=== PATIENT | female | born 1965 | race Caucasian/White ===

== ENCOUNTER 2023-05-29 19:09 | Emergency (ER) | payer OTHER, SELFPAY ==
[2023-05-29 19:13] VITALS: BP 117/84
[2023-05-29 19:41] LABS: % Basophils 0.5 % (0-2); % Immature Granulocytes 0.2 % (0-0.5); % Lymphocytes 22.2 % (20.5-51.1); % Neutrophils 69.1 % (42.2-75.2); Absolute Eosinophils 0.1 10^3/uL (0-0.7); Absolute Lymphocytes 1.4 10^3/uL (1.2-3.4); Absolute Monocytes 0.4 10^3/uL (0.1-0.6); Absolute Neutrophils 4.3 10^3/uL (1.4-6.5); Hematocrit 42.8 % (37.0-47.0); Hemoglobin 14.7 g/dL (12.0-16.0); Mean Corp Hgb Conc. 34.3 g/dL (33.0-37.0); Mean Corpuscular Hgb 31.1 pg (27.0-31.0); Mean Corpuscular Volume 90.5 fL (81.0-99.0); Mean Platelet Volume 10.5 fL (7.4-10.4); Nucleated Red Blood Cells % 0 %; Platelet Count 203 10^3/uL (130-400); Red Blood Cell Count 4.73 10^6/uL (4.20-5.40); Red Cell Dist. Width 12.1 % (11.5-14.5); White Blood Cell Count 6.2 10^3/uL (4.8-10.8)
[2023-05-29 19:52] LABS: ALT (SGPT) 28 U/L (0-35); AST (SGOT) 39 U/L (14-36); Albumin 5.1 g/dl (3.5-5.0); Alkaline Phosphatase 91 U/L (38-126); Blood Urea Nitrogen 17 mg/dl (7-17); Calcium 10.1 mg/dl (8.4-10.2); Carbon Dioxide 28 mmol/L (22-30); Chloride 104 mmol/L (98-107); Glucose 115 mg/dl (70-99); Magnesium 2.2 mg/dl (1.6-2.3); Potassium 4.1 mmol/L (3.5-5.1); Sodium 140 mmol/L (135-145); Total Bilirubin 0.9 mg/dl (0.2-1.3); eGFR > 60.00
[2023-05-29 20:05] LABS: Troponin I < 0.012 ng/ml
[2023-05-29 20:23] LABS: TSH Reflex To Free T4 2.56 uIU/ml (0.47-4.68)
--- NOTE | 2023-05-29 21:05 | ED.GENMED ---
History of Present Illness
General
Chief Complaint: Heart Rate Problem
Time Seen by Provider: 05/29/23 20:03
Travel History
Have you had any contact with someone who has COVID-19?: No
Do you have any symptoms of coronavirus? Fever > 100 degrees, chills, cough, shortness of breath, sore throat, loss of taste or smell, muscle aches, or headache?: No
History of Present Illness
History of Present Illness:
58-year-old female presents to the emergency department for evaluation of elevated heart rate occurring earlier today. She was at work when the symptoms began but was not exerting herself at the time. She states she had a 10 to 20-minute period of
heart palpitations, denies any chest pain or shortness of breath during this time. Denies any fevers or dizziness. No history of heart arrhythmias or heart palpitations. Denies any illicit substance use. She has not had any recurrence of
symptoms since this event. She is wearing an Apple Watch but did not take an EKG her heart rate monitor during this time
Past History
Past History
ED Past Medical History: None
ED Past Surgical History: Appendectomy and Other (Breast implants)
Social History
Tobacco: Non-smoker
Alcohol: None
Personal:
Living: with family
Family History
Family History: Negative Hypertension, Early CAD or CAD
Review of Systems
Review of Systems
Allergies reviewed?: Yes
All Other Systems: ROS reviewed and negative except as documented in HPI and ROS
Phy Exam
Physical Exam
Physical Exam:
GEN: Well appearing, NAD, WDWN
HEENT: Oral mucosa moist, no scleral icterus
Cardiac: Regular rate and rhythm, no murmurs
Lung: No respiratory distress, no tachypnea
MSK: No gross deformity or injuries
Skin: Good color, no pallor or jaundice, no rashes
Neuro: AO x3, moves all extremities freely
Psych: Calm, cooperative
Course
Orders/Labs/Results
Orders:
Orders
05/29/23 19:17
Electrocardiogram (*1) Urgent
Reason for Study: Chest Pain
CR Chest - 2 Views Urgent
Comment:
Reason For Exam: chest pain
05/29/23 19:18
EKG- Treatment ONCE
05/29/23 19:24
Complete Blood Count/With Diff Urgent
Comprehensive Metabolic Panel Urgent
Magnesium Urgent
TSH Reflex To Free T4 Urgent
Troponin I Urgent
Abnormal Lab Results
05/29/23
19:24
MCH 31.1 H pg
(27.0-31.0)
MPV 10.5 H fL
(7.4-10.4)
Glucose 115 H mg/dl
(70-99)
AST 39 H U/L
(14-36)
Total Protein 9.0 H g/dl
(6.3-8.2)
Albumin 5.1 H g/dl
(3.5-5.0)
05/29/23 19:24
05/29/23 19:24
Vital Signs
Initial and Last Documented VS:
Initial Vital Signs
Temp Pulse Resp BP Pulse Ox
98.2 F 111 20 117/84 98
05/29/23 19:13 05/29/23 19:13 05/29/23 19:13 05/29/23 19:13 05/29/23 19:13
Last Documented Vital Signs
Temp Pulse Resp BP Pulse Ox
98.2 F 98 18 117/84 100
05/29/23 19:13 05/29/23 21:08 05/29/23 21:08 05/29/23 19:13 05/29/23 21:08
MDM/Problems Addressed
MDM/Problems Addressed:
58-year-old female presents with heart palpitations. She had no recurrent arrhythmias in the emergency department and unfortunately did not assess her EKG on her fitness monitor. Her troponin is negative and she has no chest pain thus I do not
have any concern for ischemia in the setting of her slightly depressed ST segments on her EKG. Would suspect SVT, less likely paroxysmal A-fib. Recommend she monitor her heart rates with her fitness monitor going forward
Comment
Comment:
EKG independently interpreted by me shows normal sinus rhythm at a rate of 89, there are subtle ST depressions inferiorly and laterally
*Critical Care Note
Total Time (30-74mins, 75-104mins- exclusive of procedures): Not Applicable
ED Attending Note
-
Portions of this chart may have been created with voice recognition software.� Occasional wrong word or��sound alike� substitutions may have occurred due to the inherent limitations of voice recognition software.
Discharge Plan
Departure
Patient Disposition: Home (Routine Discharge)
Date of Disposition: 05/29/23
Time of Disposition: 21:05
Patient with high blood pressure during this ER visit?: No
Discharge Problem:
Heart palpitations
Instructions: Palpitations (DC)
Prescriptions:
No Action
azithromycin [Zithromax] 250 MG tablet
250 mg PO UD
codeine-guaifenesin [Guaiatussin AC] 10 ML liquid
10 ml PO Q4HPRN PRN (Reason: cough)
Interventions
Interventions:
*Risk Screen - Suicide Last Done: 05/29/23 19:13
*General Assessment Last Done: 05/29/23 19:13
*Neglect/Abuse Screening Last Done: 05/29/23 19:13
ED- Fall Risk Assessment Last Done: 05/29/23 21:08
*Nursing Disposition Last Done: 05/29/23 21:25
ED- Cardiac Assessment Last Done: 05/29/23 21:08
ED- Pulmonary Assessment Last Done: 05/29/23 21:08
Discharge Date and Time
Discharge Date/Time: 05/29/23 21:26
== END 2023-05-29 21:26 | disposition home or self-care (01) ==
LOC: EMR 19:09
PROVIDERS: Emergency Medicine; EMERGENCY PHYSICIAN Emergency Medicine
DX: R00.2 Palpitations (principal); R07.9 Chest pain, unspecified
CPT/HCPCS: 99285; 71046; 80053; 83735; 84443; 84484; 85025; 93005

== ENCOUNTER 2023-09-09 17:15 | Emergency (ER) | payer OTHER, SELFPAY ==
[2023-09-09 17:22] VITALS: BP 154/99
[2023-09-09 18:22] LABS: % Basophils 0.6 % (0-2); % Eosinophils 1.6 % (0-6); % Immature Granulocytes 0.2 % (0-0.5); % Lymphocytes 30.7 % (20.5-51.1); % Monocytes 7.7 % (1.7-9.3); % Neutrophils 59.2 % (42.2-75.2); Absolute Eosinophils 0.1 10^3/uL (0-0.7); Absolute Lymphocytes 1.6 10^3/uL (1.2-3.4); Absolute Monocytes 0.4 10^3/uL (0.1-0.6); Hematocrit 38.3 % (37.0-47.0); Hemoglobin 13.5 g/dL (12.0-16.0); Mean Corp Hgb Conc. 35.2 g/dL (33.0-37.0); Mean Corpuscular Hgb 30.4 pg (27.0-31.0); Mean Corpuscular Volume 86.3 fL (81.0-99.0); Mean Platelet Volume 9.7 fL (7.4-10.4); Nucleated Red Blood Cells % 0 %; Platelet Count 182 10^3/uL (130-400); Red Blood Cell Count 4.44 10^6/uL (4.20-5.40); Red Cell Dist. Width 12.2 % (11.5-14.5); White Blood Cell Count 5.1 10^3/uL (4.8-10.8)
[2023-09-09 18:35] LABS: ALT (SGPT) 34 U/L (0-35); AST (SGOT) 41 U/L (14-36); Albumin 4.7 g/dl (3.5-5.0); Alkaline Phosphatase 63 U/L (38-126); Blood Urea Nitrogen 17 mg/dl (7-17); Carbon Dioxide 26 mmol/L (22-30); Chloride 105 mmol/L (98-107); Glucose 128 mg/dl (70-99); Potassium 3.6 mmol/L (3.5-5.1); Sodium 141 mmol/L (135-145); Total Bilirubin 0.6 mg/dl (0.2-1.3); eGFR > 60.00
[2023-09-09 18:53] LABS: Troponin I < 0.012 ng/ml
[2023-09-09 19:06] LABS: TSH Reflex To Free T4 3.51 uIU/ml (0.47-4.68)
--- NOTE | 2023-09-09 19:08 | ED.GENMED ---
History of Present Illness
General
Chief Complaint: Heart Rate Problem
Source: patient
Exam Limitations: none
Time Seen by Provider: 09/09/23 18:56
Travel History
Have you had any contact with someone who has COVID-19?: No
Do you have any symptoms of coronavirus? Fever > 100 degrees, chills, cough, shortness of breath, sore throat, loss of taste or smell, muscle aches, or headache?: No
History of Present Illness
History of Present Illness:
This is a 58 year old female that comes in with c/o tachycardia. 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 States that she started to feel dizzy and thing
were going black but she held it together and went and sat down in the bathroom. States that this lasted for about 5 min. States that she has had this before about 2 months ago. States that she called Dr. Soto's office and she has an
appointment tomorrow at 1:30pm. States that she is a good water drinker. State that she has had a headache all day. States that she really could feel her heart beating. States that just walking back from Triage her heart rate was 104. Denies any
fever, chills, chest pain, SOB, abd pain, nausea, vomiting, diarrhea, urinary burning.
Past History
Past History
ED Past Medical History: None; Negative Asthma, HTN, Hypercholesterolemia or NIDDM
ED Past Surgical History: Appendectomy and Other (Breast implants)
Social History
Tobacco: Non-smoker
Alcohol: Occasional
Personal:
Living: with family
Employment: Employed
Family History
Family History: Negative Hypertension, Early CAD or CAD
Review of Systems
Review of Systems
All Other Systems: ROS reviewed and negative except as documented in HPI and ROS
Constitutional: Reports no symptoms; Denies fever or chills
EENT: Reports no symptoms
Respiratory: Reports no symptoms; Denies cough or trouble breathing
Cardiac: Reports other (Just felt her heart really beating hard); Denies chest pain
ABD/GI: Reports no symptoms; Denies abdominal pain, nausea, vomiting or diarrhea
: Reports no symptoms; Denies dysuria, frequency or urgency
Musculoskeletal: Reports no symptoms
Skin: Reports no symptoms
Neurological: Reports dizzy and headache (all day)
Psychiatric: Reports no symptoms
Phy Exam
General Physical Exam
General Presentation: well appearing and no apparent distress
General age: appears stated age
General Skin: warm and dry
General Habitus: normal
General Mental: alert
General Hydration: appears well hydrated
ENT Exam
ENT Exam: TM's normal, pharynx normal and neck supple
Eye Exam
Eye Exam: EOMI
Cardiovascular Exam
Cardiovascular Exam: regular rate/rhythm, no edema, no murmur and normal peripheral pulses
Pulmonary Exam
Pulmonary Exam: lungs clear, no respiratory distress, no rales, chest non tender, no crackles, no rhonchi, no wheezing and no cough
Gastrointestinal Exam
Gastrointestinal Exam: normal bowel sounds, non tender, soft, no organomegaly, no pulsatile mass and non distended
Musculoskeletal Exam
Musculoskeletal Exam: full ROM and no edema
Skin Exam
Skin Exam: normal color, warm/dry, no rash and no petechia
Psychiatric Exam
Psychiatric Exam: normal mood/affect
Course
Orders/Labs/Results
Orders:
Orders
09/09/23 17:25
Electrocardiogram (*1) Urgent
Reason for Study: Tachycardia
09/09/23 17:26
EKG- Treatment ONCE
09/09/23 18:14
Complete Blood Count/With Diff Urgent
Comprehensive Metabolic Panel Urgent
TSH Reflex To Free T4 Urgent
Troponin I Urgent
09/09/23 19:53
D-Dimer Urgent
Abnormal Lab Results
09/09/23
18:14
Glucose 128 H mg/dl
(70-99)
AST 41 H U/L
(14-36)
09/09/23 18:14
09/09/23 18:14
Glucose nonfasting. AST elevation. Troponin <0.012, TSH 3.51, D-dimer 0.47,
Vital Signs
Initial and Last Documented VS:
Initial Vital Signs
Temp Pulse Resp BP Pulse Ox
98.4 F 104 18 154/99 100
09/09/23 17:22 09/09/23 17:22 09/09/23 17:22 09/09/23 17:22 09/09/23 17:22
Last Documented Vital Signs
Temp Pulse Resp BP Pulse Ox
98.4 F 77 13 124/89 99
09/09/23 17:22 09/09/23 19:49 09/09/23 19:49 09/09/23 19:49 09/09/23 19:49
MDM/Problems Addressed
Differential Diagnosis Includes:
Tachycardia, PE,
MDM/Problems Addressed:
This is a 58 year old female that comes in with c/o tachycardia. States that she was just standing talking with other [employer] at [employer] and her heart rate went up to 133. State that she could feel her heart beating hard. States that she has had this
in the past. Today this lasted about 5 min and she was dizzy.
Will get labs.
Back into see patient. Explained that the D-dimer is negative and that her TSH is normal. Patient to see the Warper Tender tomorrow as scheduled. Return with any concerns.
Chronic conditions affecting care:
NA
Acute Exacerbation and/or Progression of Chronic Illness:
NA
*Pulse Oximetry
Patient hypoxic: no
*EKG
Interpreted by ED Provider?: Yes
Heart Rate: 86
Rate: normal
Rhythm: sinus
[place]: normal axis
Interval: normal interval
QRS Pattern: normal QRS
Ischemia: non-specific ST changes (II, III, aVF, V4, V5, )
*Critical Care Note
Total Time (30-74mins, 75-104mins- exclusive of procedures): Not Applicable
ED Attending Note
-
Portions of this chart may have been created with voice recognition software.� Occasional wrong word or��sound alike� substitutions may have occurred due to the inherent limitations of voice recognition software.
Discharge Plan
Departure
Patient Disposition: Home (Routine Discharge)
Date of Disposition: 09/09/23
Time of Disposition: 20:28
Patient with high blood pressure during this ER visit?: No
Condition: Good
Covid-19: Not Applicable
Discharge Problem:
Tachycardia
Instructions: Tachycardia
Prescriptions:
No Action
ascorbic acid (vitamin C) [Vitamin C] 500 mg Tablet
1,000 mg PO DAILY
cholecalciferol (vitamin D3) 125 mcg (5,000 unit) Tablet
125 mcg PO DAILY
Patient Comments:
09/09/2023, gummy.
ibuprofen [Children's Ibuprofen] 100 mg/5 mL Suspension
300 mg PO DAILYPRN PRN (Reason: mild pain)
Referrals:
Rachele Lund MD [Family Provider] -
Kai Soto MD [Active] - 09/10/23
Activity Restrictions/Additional Instructions:
As discussed, your blood work is normal. Your TSH is normal along with the D-dimer. Please follow up with the Warper Tender tomorrow as scheduled. He may place you on medication to help your heart beat more effectively and have you wear a Holter
Monitor. IF YOU HAVE INCREASED HEART RATE THAT IS NOT COMING DOWN, CHEST PAIN, OR YOU HAVE ANY OTHER CONCERNS PLEASE RETURN TO THE EMERGENCY ROOM.
Interventions
Interventions:
*Risk Screen - Suicide Last Done: 09/09/23 17:22
*General Assessment Last Done: 09/09/23 17:22
*Neglect/Abuse Screening Last Done: 09/09/23 17:22
Discharge Date and Time
Print Language: SLOVAK
[2023-09-09 19:48] VITALS: BP 124/89
[2023-09-09 19:49] VITALS: BP 124/89
[2023-09-09 20:00] VITALS: BP 133/79
[2023-09-09 20:18] LABS: D-Dimer 0.47 ug/mlFEU (0.00-0.50)
== END 2023-09-09 21:32 | disposition home or self-care (01) ==
LOC: EMR 17:15
PROVIDERS: Clinical Nurse Specialist Family Health; Emergency Medicine; EMERGENCY PHYSICIAN Emergency Medicine; FAMILY PHYSICIAN Internal Medicine
DX: R00.0 Tachycardia, unspecified (principal); R42 Dizziness and giddiness; R51.9 Headache, unspecified
CPT/HCPCS: 99284; 80053; 84443; 84484; 85025; 85379; 93005

== ENCOUNTER → 2023-10-11 09:13 | Outpatient (REF) | payer OTHER, SELFPAY | LOC: RCS 09:13 | PROVIDERS: ATTENDING PHYSICIAN Internal Medicine Cardiovascular Disease; FAMILY PHYSICIAN Internal Medicine | DX: R00.2 Palpitations (principal) | CPT/HCPCS: 93306 ==

== ENCOUNTER 2023-12-29 10:25 | Emergency (ER) | payer OTHER, SELFPAY ==
[2023-12-29 10:40] VITALS: BP 146/84
[2023-12-29 10:49] VITALS: BMI 20.7
--- NOTE | 2023-12-29 11:05 | ED.GENMED ---
History of Present Illness
General
Chief Complaint: Chest Pain
Source: patient and spouse
Exam Limitations: none
Time Seen by Provider: 12/29/23 10:46
Nursing documentation reviewed up to this point in time: agreed with
History of Present Illness
History of Present Illness:
58-year-old female presenting to the emergency department today with concerns of left-sided chest pain with radiation to her left jaw area that was present for an hour or 2 prior to arrival associated mild shortness of breath. Some nausea no
vomiting also some diarrhea this morning. Denies any specific fevers. Symptoms have been improving. Denies any recent trauma surgery immobilization, leg swelling, estrogen product usage, history of blood clots.
Past History
Past History
ED Past Medical History: None; Negative Asthma, HTN, Hypercholesterolemia or NIDDM
ED Past Surgical History: Appendectomy and Other (Breast implants)
Social History
Tobacco: Non-smoker
Alcohol: Occasional
Personal:
Living: with family
Employment: Employed
Family History
Family History: Negative Hypertension, Early CAD or CAD
Review of Systems
Review of Systems
Allergies reviewed?: Yes
All Other Systems: ROS reviewed and negative except as documented in HPI and ROS
Phy Exam
Physical Exam
Physical Exam:
GENERAL: Alert , in no apparent distress
EYE: pupils equal and reactive
NECK: Supple, no significant adenopathy.
ENT: o/p clr, mmm.
CARDIAC: Regular rate and rhythm .
LUNGS: Clear breath sounds bilaterally, no acute respiratory distress, no wheezes/rales/rhonchi
ABDOMEN: Soft, without focal tenderness, no r/g, no cvat
NEUROLOGICAL: Alert and oriented, no focal neuro deficits
SKIN: Warm and dry, skin intact.
MUSCULOSKELETAL: No edema, well perfused.
PSYCH: Normal and appropriate interaction.
Scores
Heart Score for Chest Pain Patients
STEMI patient?: No
History: Slightly or Non-Suspicious
ECG: Normal
Age: >45 - <65 years
Risk Factors: No Risk Factors
Troponin: </= Normal Limit
Heart Score for Chest Pain Patients: 1
Heart Score Risk: 2.5% MACE over next 6 weeks
Course
Orders/Labs/Results
Orders:
Orders
12/29/23 10:27
EKG [Electrocardiogram (*1)] Urgent
Reason for Study: Chest Pain
EKG- Treatment ONCE
12/29/23 11:04
Complete Blood Count/With Diff Urgent
Comprehensive Metabolic Panel Urgent
Troponin I Urgent
12/29/23 11:05
Chest [CR Chest - 2 Views ] Urgent
Comment:
Reason For Exam: cp
12/29/23 11:28
Aspirin 325 mg PO NOW STA
Mag Hydrox/Al Hydrox/Simeth [Maalox] 30 ml Phenobarb/Hyoscy/Atropine/Scop [] 10 ml PO NOW
12/29/23 11:40
Mag Hydrox/Al Hydrox/Simeth [Maalox] 30 ml .ROUTE .STK-MED ONE
Phenobarb/Hyoscy/Atropine/Scop [] 10 ml .ROUTE .STK-MED ONE
12/29/23 13:11
EKG [Electrocardiogram (*1)] Urgent
Reason for Study: Chest Pain
EKG- Treatment ONCE
12/29/23 13:45
Troponin I Urgent
Abnormal Lab Results
12/29/23
11:04
WBC 3.7 L 10^3/uL
(4.8-10.8)
Glucose 111 H mg/dl
(70-99)
AST 38 H U/L
(14-36)
ALT 37 H U/L
(0-35)
12/29/23 11:04
12/29/23 11:04
Vital Signs
Initial and Last Documented VS:
Initial Vital Signs
Temp Pulse Resp BP Pulse Ox
99.0 F 88 16 146/84 98
12/29/23 10:40 12/29/23 10:40 12/29/23 10:40 12/29/23 10:40 12/29/23 10:40
Last Documented Vital Signs
Temp Pulse Resp BP Pulse Ox
99.0 F 79 14 119/77 100
12/29/23 10:40 12/29/23 11:22 12/29/23 11:22 12/29/23 14:00 12/29/23 14:30
MDM/Problems Addressed
MDM/Problems Addressed:
58-year-old female presenting to the emergency department today with concerns of chest discomfort described as achy pressure to the left chest rating to the left jaw with associated shortness of breath. She did have some nausea yesterday no
vomiting, diarrhea today. Here upon arrival blood pressure slightly elevated upon arrival however improving without specific treatment. She was given a GI cocktail as she has had some GI symptoms with some improvement in symptoms she was also
given aspirin. Labs obtained without acute abnormalities initial troponin negative as well as EKG nonischemic. Chest x-ray without acute abnormalities. Symptoms gradually improving throughout the ER stay no symptoms at times of reassessment. 3
hours and to stay repeated troponin and EKG without changes negative troponin. Patient appear stable for outpatient follow-up with cardiology no signs of emergent life-threatening pathology at this time return precautions given.
*Critical Care Note
Total Time (30-74mins, 75-104mins- exclusive of procedures): Not Applicable
ED Attending Note
-
Portions of this chart may have been created with voice recognition software.� Occasional wrong word or��sound alike� substitutions may have occurred due to the inherent limitations of voice recognition software.
Discharge Plan
Departure
Patient Disposition: Home (Routine Discharge)
Date of Disposition: 12/29/23
Time of Disposition: 14:45
Patient with high blood pressure during this ER visit?: No
Condition: Good
Covid-19: Not Applicable
Discharge Problem:
Chest pain
Instructions: Chest Pain CBC Follow Up
Prescriptions:
No Action
ascorbic acid (vitamin C) [Vitamin C] 500 mg Tablet
1,000 mg PO DAILY
cholecalciferol (vitamin D3) 125 mcg (5,000 unit) Tablet
125 mcg PO DAILY
Patient Comments:
09/09/2023, tova.
ibuprofen [Children's Ibuprofen] 100 mg/5 mL Suspension
300 mg PO DAILYPRN PRN (Reason: mild pain)
Referrals:
Rachele Lund MD [Family Provider] -
Activity Restrictions/Additional Instructions:
You came to the emergency department today with concerns of chest discomfort. Here you had a reassuring assessment and no evidence of acute coronary syndromes. You had a normal chest x-ray and no significant events on the monitor throughout ER
stay. This is reassuring. Please follow closely with cardiology. Return to the emergency department for worsening, new or concerning symptoms.
Interventions
Interventions:
*Risk Screen - Suicide Last Done: 12/29/23 10:50
*General Assessment Last Done: 12/29/23 10:50
*Neglect/Abuse Screening Last Done: 12/29/23 10:50
ED- Fall Risk Assessment Last Done: 12/29/23 12:00
*ED COVID-19 Vaccine History Last Done: 12/29/23 10:50
ED- Cardiac Assessment Last Done: 12/29/23 12:00
Discharge Date and Time
Print Language: [place]EN[place]
[2023-12-29 11:13] LABS: % Basophils 0.8 % (0-2); % Eosinophils 2.4 % (0-6); % Lymphocytes 35.1 % (20.5-51.1); % Monocytes 8.4 % (1.7-9.3); % Neutrophils 53.3 % (42.2-75.2); Absolute Eosinophils 0.1 10^3/uL (0-0.7); Absolute Lymphocytes 1.3 10^3/uL (1.2-3.4); Absolute Monocytes 0.3 10^3/uL (0.1-0.6); Hemoglobin 13.7 g/dL (12.0-16.0); Mean Corp Hgb Conc. 35.1 g/dL (33.0-37.0); Mean Corpuscular Hgb 30.4 pg (27.0-31.0); Mean Corpuscular Volume 86.5 fL (81.0-99.0); Nucleated Red Blood Cells % 0 %; Platelet Count 209 10^3/uL (130-400); Red Blood Cell Count 4.51 10^6/uL (4.20-5.40); Red Cell Dist. Width 11.9 % (11.5-14.5); White Blood Cell Count 3.7 10^3/uL (4.8-10.8)
[2023-12-29 11:22] VITALS: BP 115/77
[2023-12-29 11:23] LABS: ALT (SGPT) 37 U/L (0-35); AST (SGOT) 38 U/L (14-36); Albumin 4.7 g/dl (3.5-5.0); Alkaline Phosphatase 91 U/L (38-126); Blood Urea Nitrogen 12 mg/dl (7-17); Calcium 9.7 mg/dl (8.4-10.2); Carbon Dioxide 28 mmol/L (22-30); Chloride 105 mmol/L (98-107); Estimated Creatinine Clearance 61 ml/min; Glucose 111 mg/dl (70-99); Potassium 4.2 mmol/L (3.5-5.1); Sodium 145 mmol/L (135-145); Total Bilirubin 0.9 mg/dl (0.2-1.3); Total Protein 7.9 g/dl (6.3-8.2); eGFR > 60.00
[2023-12-29 11:34] LABS: Troponin I < 0.012 ng/ml
[2023-12-29] MEDS: MAALOX 30 PO (11:45)
[2023-12-29] MEDS: ASPIRIN 325 MG PO (11:46)
[2023-12-29 13:05] VITALS: BP 97/72
[2023-12-29 14:00] VITALS: BP 119/77
[2023-12-29 14:15] LABS: Troponin I < 0.012 ng/ml
== END 2023-12-29 15:08 | disposition home or self-care (01) ==
LOC: EMR 10:25
PROVIDERS: Physician Assistant; EMERGENCY PHYSICIAN Emergency Medicine; FAMILY PHYSICIAN Internal Medicine
DX: R07.89 Other chest pain (principal); Z90.49 Acquired absence of other specified parts of digestive tract
CPT/HCPCS: 99283; 71046; 80053; 84484; 85025; 93005

== ENCOUNTER → 2024-05-08 09:00 | Outpatient (REF) | payer OTHER, SELFPAY | LOC: WDC 09:00 | PROVIDERS: ATTENDING PHYSICIAN Hospitalist | DX: Z12.31 Encounter for screening mammogram for malignant neoplasm of breast (principal) | CPT/HCPCS: 77063; 77067 ==